=== PATIENT | male | born 1990 | race Caucasian/White ===

== ENCOUNTER 2018-10-27 21:22 | Emergency (ER) | payer SELFPAY ==
[2018-10-27] MEDS ORDERED: Ibuprofen 600 MG Tab PO ONE (21:26)
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
--- NOTE | 2018-10-28 10:55 | CR ---
Left tibia and fibula: AP and lateral views of the left tibia and fibula were obtained. Comparison: No previous study. Bony density and mild bony irregularity is identified within and off the anterior tibial tuberosity at the attachment of the patellar ligament. 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 No acute fracture or other abnormality is seen. Impression: 1. Findings felt to be old off and within the anterior tibial tuberosity as noted above. 2. Left tibia and fibula study is otherwise unremarkable. Diagnostic code #2
== END 2018-10-27 22:30 ==
LOC: JD.ED 21:22 → EDBD 21:22 → JD.ED 22:30
DX: S90.02XA Contusion of left ankle, initial encounter (principal); S50.312A Abrasion of left elbow, initial encounter; S80.812A Abrasion, left lower leg, initial encounter; S90.812A Abrasion, left foot, initial encounter; W22.8XXA Striking against or struck by other objects, initial encounter
CPT/HCPCS: 73590; 99283; A9270